=== PATIENT | female | born 1985 | race Two or more races ===

== ENCOUNTER 2020-12-20 17:50 | Emergency (ER) | payer MEDICAID ==
[~2020-12-20] VITALS: Ht 175.3 cm; Wt 63.5 kg
--- NOTE | 2020-12-20 17:50 | NUR ---
PT BIB SELF C/O R SIDE OF THE BODY NUMBNESS, DIZZINESS AND LOWER BACK PAIN. PT IS AAOX4, NOT IN RESPIRATORY DISTRESS, HOOKED TO HEADING MATCHER AND ASSEMBLER, KEPT RESTED AND COMFORTABLE. WILL CONTINUE TO MONITOR.
--- NOTE | 2020-12-20 18:17 | NUR ---
SEEN AND EXAMINED BY KATHY HUTCHISON
--- NOTE | 2020-12-20 18:25 | NUR ---
IV LINE ESTABLISHED BLOOD DRAWN AND SENT TO LAB.
[2020-12-20 18:33] LABS: BASOPHILS % (AUTO) 0.6 % (0.0-2.0); EOSINOPHILS % (AUTO) 1.1 % (0.0-6.0); HEMATOCRIT 35 % (33-45); HEMOGLOBIN 12.2 g/dL (11.5-14.8); LYMPHOCYTES # (AUTO) 1.9 /CMM (0.8-4.8); LYMPHOCYTES % (AUTO) 24.7 % (20.0-44.0); MEAN CORPUSCULAR HGB CONC 35 g/dl (31.0-36.0); MEAN CORPUSCULAR VOLUME 85 fL (82-100); MONOCYTES # (AUTO) 0.4 /CMM (0.1-1.30); MONOCYTES % (AUTO) 4.6 % (2.0-12.0); NEUTROPHILS # (AUTO) 5.3 /CMM (1.8-8.9); PLATELET COUNT (AUTO) 206 /CMM (150-450); RED BLOOD CELL COUNT(AUTO) 4.15 MIL/uL (4.0-5.2); WHITE BLOOD COUNT (AUTO) 7.7 K/uL (4.3-11.0)
[2020-12-20 18:44] LABS: CALCIUM, SERUM 9.3 mg/dL (8.5-10.1); CREATININE 0.8 mg/dL (0.6-1.3); POTASSIUM 3.9 mmol/L (3.5-5.1)
[2020-12-20 18:50] LABS: BILIRUBIN,DIRECT 0.1 mg/dL (0.0-0.2); BILIRUBIN,TOTAL 0.4 mg/dL (0.2-1.0); TOTAL PROTEIN, SERUM 7.4 g/dL (6.4-8.2)
[2020-12-20] MEDS: IV NS 0.9% 1,000 ML BAG IV ONE (19:03)
[2020-12-20 19:08] LABS: BILIRUBIN,URINE Negative (NEGATIVE); COLOR,URINE YELLOW (YELLOW); LEUKOCYTE ESTERASE ,URINE Moderate (NEGATIVE); NITRITE, URINE Negative (NEGATIVE); PH,URINE 6.5 (5.0-8.0); PROTEIN,URINE Negative (NEGATIVE); UGLUCOSE Negative (NEGATIVE); UROBILINOGEN,URINE 0.2 EU/dL (0.2)
[2020-12-20] MEDS ORDERED: DEXAMETHASONE SOD PHOSPHATE 10 MG/ML VIAL ONE (19:13)
[2020-12-20] MEDS ORDERED: KETOROLAC TROMETHAMINE INJ 30 MG/ML VIAL ONE (19:13)
[2020-12-20] MEDS ORDERED: CYCLOBENZAPRINE 10 MG TABLET ONE (19:14)
[2020-12-20 19:19] LABS: BACTERIA,URINE Few /HPF (None Seen); SQUAMOUS EPITHELIAL CELL,UR Few /HPF (None Seen)
[2020-12-20] MEDS: DEXAMETHASONE SOD PHOSPHATE 8 MG in IV D5W 50 ML IV ONE (19:27)
[2020-12-20] MEDS: CYCLOBENZAPRINE 10 MG TABLET PO ONE (19:30)
[2020-12-20] MEDS: KETOROLAC TROMETHAMINE INJ 30 MG/ML VIAL IV ONE (19:30)
--- NOTE | 2020-12-20 19:31 | NUR ---
REPORT GIVEN TO COREY CHATMAN FOR ESE
[2020-12-20] MEDS ORDERED: CEPH500T PO (19:59)
[2020-12-20] MEDS ORDERED: IBUP-1955 PO (19:59)
--- NOTE | 2020-12-20 20:04 | NUR ---
TARAH CHAVEZ AT BED SIDE
--- NOTE | 2020-12-20 20:16 | NUR ---
pt is medically stable for d/c, IV removed. Catheter intact and site benign. Pressure and 4x4 applied to site. No bleeding noted.Patient discharged to home in stable condition. Rx and Written and verbal after care instructions given. Patient verbalizes understanding of instruction.
[2020-12-20 20:17] VITALS: BP 137/89
== END 2020-12-20 20:27 | disposition home or self-care (01) ==
LOC: ER 17:57
DX: M54.5 Low back pain (principal); R51.9 Headache, unspecified; N39.0 Urinary tract infection, site not specified
CPT/HCPCS: 36415; 72110; 80048; 80076; 81001; 84703; 85025; 87086; 96361; 96374; 96375; 99284; J1100; J1885; J7030; J7060

== ENCOUNTER 2021-09-09 18:35 | Emergency (ER) | payer MEDICAID ==
[~2021-09-09] VITALS: Ht 170.2 cm; Wt 70.3 kg
[~2021-09-09 18:35] MED LIST: CEPH500T PO; IBUP-1955 PO
--- NOTE | 2021-09-09 18:58 | NUR ---
The patient bibs for c/o left thigh redness, warm to touch and pain since thursday 9/ pain scale. Will continue to monitor the patient.
[2021-09-09 19:36] LABS: BASOPHILS % (AUTO) 0.5 % (0.0-2.0); EOSINOPHILS % (AUTO) 3.1 % (0.0-6.0); HEMATOCRIT 35 % (33-45); LYMPHOCYTES # (AUTO) 1.9 K/uL (0.8-4.8); LYMPHOCYTES % (AUTO) 26.2 % (20.0-44.0); MEAN CORPUSCULAR HGB CONC 34 g/dl (31.0-36.0); MEAN CORPUSCULAR VOLUME 85 fL (82-100); MONOCYTES # (AUTO) 0.4 K/uL (0.1-1.30); MONOCYTES % (AUTO) 5.3 % (2.0-12.0); NEUTROPHILS # (AUTO) 4.8 K/uL (1.8-8.9); NEUTROPHILS % (AUTO) 64.9 % (43.0-81.0); PLATELET COUNT (AUTO) 211 K/uL (150-450); RED BLOOD CELL COUNT(AUTO) 4.13 MIL/uL (4.0-5.2); WHITE BLOOD COUNT (AUTO) 7.4 K/uL (4.3-11.0)
[2021-09-09 19:56] LABS: CALCIUM, SERUM 9.2 mg/dL (8.5-10.1); CREATININE 0.8 mg/dL (0.6-1.3); POTASSIUM 3.7 mmol/L (3.5-5.1)
[2021-09-09] MEDS ORDERED: CEPH500T PO (20:08)
[2021-09-09] MEDS ORDERED: SULF1TAB48 PO (20:08)
[2021-09-09] MEDS ORDERED: ACET-2605 PO (20:09)
[2021-09-09] MEDS: CEFTRIAXONE 1GM BAG (ER ONLY) 1 GM/50 ML PIGGYBACK IV ONE (20:20)
[2021-09-09] MEDS ORDERED: CEFTRIAXONE 1GM BAG (ER ONLY) 50 ML IV ONE (20:25)
[2021-09-09] MEDS ORDERED: SULFAMETH/TRIMETH 800/160 MG 1 UDTAB TABLET ONE (20:25)
[2021-09-09] MEDS ORDERED: IBUPROFEN 600 MG TABLET ONE (20:25)
[2021-09-09] MEDS: IBUPROFEN 600 MG TABLET PO ONE (20:37)
[2021-09-09] MEDS: SULFAMETH/TRIMETH 800/160 MG 1 UDTAB TABLET PO ONE (20:37)
--- NOTE | 2021-09-09 20:51 | NUR ---
IV removed. Catheter intact and site benign. Pressure and 4x4 applied to site. No bleeding noted.
--- NOTE | 2021-09-09 20:54 | NUR ---
Patient discharged to home in stable condition. Written and verbal after care instructions given. Patient verbalizes understanding of instruction and RX.
[2021-09-09 20:55] VITALS: BP 123/71
== END 2021-09-09 20:55 | disposition home or self-care (01) ==
LOC: ER 18:37
DX: L03.116 Cellulitis of left lower limb (principal); Z88.6 Allergy status to analgesic agent
CPT/HCPCS: 36415; 80048; 84702; 85025; 96365; 99284; J0696

== ENCOUNTER 2022-08-05 00:34 | Inpatient (IN) | payer MEDICAID ==
[~2022-08-05] VITALS: Ht 167.6 cm; Wt 64.0 kg
[~2022-08-05 00:34] MED LIST changes: +ACET-2605 PO; +SULF1TAB48 PO
[2022-08-05] MEDS ORDERED: IV NS 0.9% 250 ML IV ONE (00:55)
[2022-08-05] MEDS ORDERED: CT SWABBABLE VALVE TRANS SET 1 EA INFUS.SET MC ONE (00:55)
[2022-08-05] MEDS ORDERED: IOHEXOL-350 100 ML VIAL IV ONE (00:55)
--- NOTE | 2022-08-05 00:55 | NUR ---
BIBRA 839 FROM C/O FEELING DIZZY X1 HR WITH L SIDE NUMBNESS POSTERIOR HEAD PRESSURE. NO RECENT PROCEDURES OR INJURIES. ENDORSES A SIMILIAR EPISODE X2 YEARS PRIOR WITH NO DEFINITIVE DIAGNOSIS. PT AWAKE AND ALERT X4 GCS 15 BREATHING EVEN AND UNABORED 5/5 STRENGTH EQUALLY X4. -FACIAL DROOP OR SLURRED SPEECH. AM,BULATES WITH STEADY GAIT. CHANGED INTO GOWN AND PLACED ON MONITOR AND V/S WNL.
--- NOTE | 2022-08-05 00:56 | NUR ---
18G IV ESTABLISHED AT [facility]. BLOOD DRAWN AND SENT TO LAB.
--- NOTE | 2022-08-05 00:58 | NUR ---
PT TAKEN TO CT VIA OSMANI
--- NOTE | 2022-08-05 01:09 | NUR ---
XRAY DONE AT BEDSIDE
--- NOTE | 2022-08-05 01:11 | NUR ---
PT RETURNED FROM CT
[2022-08-05 01:12] LABS: BASOPHILS % (AUTO) 0.4 % (0.0-2.0); EOSINOPHILS % (AUTO) 1.3 % (0.0-6.0); HEMATOCRIT 39 % (33-45); HEMOGLOBIN 13.3 g/dL (11.5-14.8); LYMPHOCYTES # (AUTO) 2.7 K/uL (0.8-4.8); LYMPHOCYTES % (AUTO) 31.8 % (20.0-44.0); MEAN CORPUSCULAR HGB CONC 34 g/dl (31.0-36.0); MEAN CORPUSCULAR VOLUME 85 fL (82-100); MONOCYTES # (AUTO) 0.4 K/uL (0.1-1.30); MONOCYTES % (AUTO) 5.3 % (2.0-12.0); NEUTROPHILS # (AUTO) 5.1 K/uL (1.8-8.9); NEUTROPHILS % (AUTO) 61.2 % (43.0-81.0); PLATELET COUNT (AUTO) 261 K/uL (150-450); RED BLOOD CELL COUNT(AUTO) 4.59 MIL/uL (4.0-5.2); WHITE BLOOD COUNT (AUTO) 8.3 K/uL (4.3-11.0)
--- NOTE | 2022-08-05 01:15 | NUR ---
PT SPEAKING TO TELE NEUROLOGIST DR ARAUZ
--- NOTE | 2022-08-05 01:17 | NUR ---
DR. TIFFANIE ALLEN ON PHONE CALL WITH DR. RADHA ARAUZ MD NEUROLOGY
--- NOTE | 2022-08-05 01:20 | NUR ---
POC ACCUCHECK 99
--- NOTE | 2022-08-05 01:22 | NUR ---
Karlee santoyo in [facility] - 08/05/22 at 0122 by NOAH PT SPEAKING TO TELE NEUROLOGIST DR ARAUZ
--- NOTE | 2022-08-05 02:15 | NUR ---
RN NOTES - MRI COMPLETED THE CHECK LIST FOR MRI. PATIENT WAS BROUGHT VIA WHEELCHAIR AT 1315 AND WAS SENT BACK TO HER ROOM AT 1402, PATIENT STABLE WITHOUT ANY COMPLICATIONS. WILL CONTINUE TO MONITOR.
--- NOTE | 2022-08-05 02:34 | NUR ---
MIKE COLLECTED AND SENT TO LAB
[2022-08-05 02:40] LABS: CALCIUM, SERUM 9.2 mg/dL (8.5-10.1); CARBON DIOXIDE 26 mmol/L (21-32); CHLORIDE 103 mmol/L (98-107); CREATININE 0.8 mg/dL (0.6-1.3); GLUCOSE 114 mg/dL (74-106); POTASSIUM 3.4 mmol/L (3.5-5.1); SODIUM SERUM 135 mmol/L (136-145); UREA NITROGEN, BLOOD 17 mg/dL (7-18)
[2022-08-05] MEDS ORDERED: ACETAMINOPHEN ES 500 MG TABLET PO PRN (04:00)
--- NOTE | 2022-08-05 04:29 | NUR ---
REPORT GIVEN TO LIANNA
[2022-08-05 06:00] VITALS: BP 122/91
--- NOTE | 2022-08-05 06:07 | NUR ---
PT TRANSFERED TO [facility] ON CARDIAC PER ACLS IN STABLE CONDITION
--- NOTE | 2022-08-05 06:07 | NUR ---
[employer]ING SUPERVISOR NOTE PT TRANSPORTED VIA GURNEY TO UNIT AT THIS TIME. PT FROM HOME ADMITTED TO TELE FROM ER UNDER COMMUNICATIONS ADVISOR [facility] FOR ADMITTING DX OF R/O STROKE. A/O X4 AND ABLE TO MAKE NEEDS KNOWN. PT STABLE ON ROOM AIR. NO SOB OR S/S OF RESPIRATORY DISTRESS. BREATHING EVEN AND UNLABORED. ON EXTERNAL OPAL MINER READING SR 68 BPM. NO COMPLAINTS OF PAIN AT THIS TIME. STATED SHE WAS HAVING TINGLING OF BILATERAL FINGERTIPS AND DIZZINESS. SKIN IS INTACT. IV ACCESS RAC 18G, INTACT AND PATENT. ORIENTED TO UNIT, ROOM, AND STAFF. ALL BELONGINGS ACCOUNTED FOR AND BELONGINGS LIST SIGNED. SAFETY PRECAUTIONS IN PLACE. BED IN LOWEST LOCKED POSITION, HOB ELEVATED, SIDE RAILS UP X3, AND CALL LIGHT AND TABLE WITHIN REACH.
[2022-08-05] MEDS: BLOOD SUGAR DIAGNOSTIC 1 EACH STRIP IN SCH ×4 (06:43→21:10)
--- NOTE | 2022-08-05 07:35 | NUR ---
AUDIT PRACTICE INTERN OPENING NOTE RECEIVED PATIENT IN BED, SLEEPING, EASILY AROUSABLE, AOX4, ABLE TO MAKE NEEDS KNOWN. PT ON RA SATURATING WELL AT 98% WITH NO S/SX OF RESPIRATORY DISTRESS. BREATHING EVEN AND UNLABORED. ON EXTERNAL SENIOR SALES ASSOCIATE READING SR 71 BPM. NO COMPLAINTS OF PAIN AT THIS TIME. COMPLAINS OF DIZZINESS, STATING SHE WAS HAVING DIZZINESS, WEAKNESS ON BILATERAL HANDS. HAS IV ACCESS RAC 18G, INTACT AND PATENT. SAFETY PRECAUTIONS IN PLACE. BED IN LOWEST LOCKED POSITION, HOB ELEVATED, SIDE RAILS UP X3, AND CALL LIGHT AND TABLE WITHIN REACH. WILL CONTINUE TO MONITOR DURING MY SHIFT.
[2022-08-05 08:00] VITALS: BP 118/75
[2022-08-05] MEDS ORDERED: MECLIZINE HCL 12.5 MG TABLET PO PRN (08:00)
--- NOTE | 2022-08-05 08:15 | NUR ---
RN NOTES - MD VISITS DR MYERS AT BEDSIDE AT 0750, RECOMMENDS PT TO USE THE BEDPAN FOR NOW, ORDERED MRI OF THE BRAIN AND TEST, WILL CARRY OUT. DR SPAULDING WAS AT BEDSIDE AT 0810, ORDERED REGULAR DIET.
[2022-08-05] MEDS ORDERED: MECLIZINE HCL 25 MG TABLET PO PRN (08:30)
[2022-08-05] MEDS ORDERED: POTASSIUM CHLORIDE 20 MEQ TAB.PRT.SR PO SCH (10:00)
[2022-08-05 12:00] VITALS: BP 101/70
[2022-08-05 16:00] VITALS: BP 110/72
[2022-08-05 16:01] VITALS: BP 101/70
--- NOTE | 2022-08-05 19:03 | NUR ---
SITE LEAD CLOSING NOTE PATIENT IN BED, AOX4, ABLE TO MAKE NEEDS KNOWN. PT ON RA SATURATING WELL AT 97% WITH NO S/SX OF RESPIRATORY DISTRESS. BREATHING EVEN AND UNLABORED. TELEMONITORING SHOWS SINUS RHYTHM OF 71 BP. PATIENT REPORTS NO DIZZINESS AND WEAKNESS LIKE THIS MORNING. HAS IV ACCESS RAC 18G, INTACT AND PATENT. SAFETY PRECAUTIONS MAINTAINED: BED IN LOWEST LOCKED POSITION, HOB ELEVATED, SIDE RAILS UP X3, AND CALL LIGHT AND TABLE WITHIN REACH. ALL NEEDS MET, DUE MEDS GIVEN. WILL ENDORSE TO THE CREPE MAKER.
--- NOTE | 2022-08-05 19:34 | NUR ---
RN OPENING NOTE PATIENT RECEIVED ASLEEP IN BED. A/OX4. NO S/S OF DISTRESS, BREATHING WITHOUT DIFFICULTY ON ROOM AIR. RAC #18 SL INTACT AND PATENT. TELE READS SR 79. SAFETY MEASURES IN PLACE: BED LOCKED IN PLACE AND AT LOWEST POSITION, RAILS UP X2, CALL CACERES WITHIN REACH. WILL CONTINUE TO MONITOR PATIENT.
[2022-08-05 20:00] VITALS: BP 102/65
[2022-08-05] MEDS ORDERED: SIMVASTATIN 20 MG TABLET PO SCH (22:00)
[2022-08-06 04:00] VITALS: BP 107/70
[2022-08-06 06:02] LABS: CALCIUM, SERUM 9.5 mg/dL (8.5-10.1); CREATININE 0.8 mg/dL (0.6-1.3)
--- NOTE | 2022-08-06 06:15 | NUR ---
RN CLOSING NOTE PATIENT ASLEEP IN BED. A/OX4. NO S/S OF DISTRESS, BREATHING WITHOUT DIFFICULTY ON ROOM AIR. RAC #18 SL INTACT AND PATENT. TELE READS 79. SAFETY MEASURES IN PLACE: BED LOCKED AND AT LOWEST POSITION, RAILS UP X2, CALL CACERES WITHIN REACH. WILL ENDORSE TO NEXT SHIFT FOR ESE.
[2022-08-06] MEDS: BLOOD SUGAR DIAGNOSTIC 1 EACH STRIP IN SCH (06:35)
[2022-08-06 07:08] LABS: BASOPHILS % (AUTO) 0.3 % (0.0-2.0); EOSINOPHILS % (AUTO) 1.1 % (0.0-6.0); HEMATOCRIT 38 % (33-45); HEMOGLOBIN 12.9 g/dL (11.5-14.8); LYMPHOCYTES # (AUTO) 1.8 K/uL (0.8-4.8); LYMPHOCYTES % (AUTO) 22.3 % (20.0-44.0); MEAN CORPUSCULAR HGB CONC 34 g/dl (31.0-36.0); MEAN CORPUSCULAR VOLUME 85 fL (82-100); MONOCYTES # (AUTO) 0.4 K/uL (0.1-1.30); MONOCYTES % (AUTO) 5.2 % (2.0-12.0); NEUTROPHILS # (AUTO) 5.8 K/uL (1.8-8.9); NEUTROPHILS % (AUTO) 71.1 % (43.0-81.0); PLATELET COUNT (AUTO) 219 K/uL (150-450); RED BLOOD CELL COUNT(AUTO) 4.41 MIL/uL (4.0-5.2); WHITE BLOOD COUNT (AUTO) 8.2 K/uL (4.3-11.0)
[2022-08-06 08:00] VITALS: BP 112/81
--- NOTE | 2022-08-06 13:33 | NUR ---
MATERIAL CARRIER NOTE PATIENT DISCHARGED FROM UNIT @ 1330 VIA WHEELCHAIR. ACCOMPANIED BY SISTER IN LAW IN PRIVATE CAR. PERSONAL BELONGINGS TAKEN BY PATIENT; INVENTORY LIST SIGNED. IV ACCESS DC'D WITH NO SIGN OF TRAUMA OR BLEEDING. ID BAND REMOVED. NO MAJOR C/O PAIN UPON DISCHARGE.
== END 2022-08-06 13:30 | disposition home or self-care (01) | DRG 111 ==
LOC: ER 00:35 → TELE 04:11
PROVIDERS: ADMIT Internal Medicine; ATTEND Internal Medicine
DX: H81.10 Benign paroxysmal vertigo, unspecified ear (principal); E87.1 Hypo-osmolality and hyponatremia; Z20.822 Contact with and (suspected) exposure to COVID-19; E87.6 Hypokalemia; G43.109 Migraine with aura, not intractable, without status migrainosus; R53.1 Weakness
CPT/HCPCS: 36415; 70450-TC; 70496-TC; 70498-TC; 70553-TC; 71045-TC; 80048-TC; 80061-TC; 82962-TC; 84484-TC; 84703-TC; 85025-TC; 85730-TC; 87081-TC; 92526; 92611-TC; 93880-TC; C9803; G0378; J7050; J8597; Q9967

== ENCOUNTER 2023-10-06 17:12 | Emergency (ER) | payer SELFPAY ==
[~2023-10-06] VITALS: Ht 167.6 cm; Wt 59.9 kg
[~2023-10-06 17:12] MED LIST changes: -CEPH500T PO; +NABU-141 PO; -SULF1TAB48 PO
[2023-10-06 19:17] LABS: BASOPHILS % (AUTO) 0.4 % (0.0-2.0); EOSINOPHILS # (AUTO) 0.1 K/uL (0.0-0.7); HEMATOCRIT 35 % (33-45); LYMPHOCYTES # (AUTO) 1.6 K/uL (0.8-4.8); LYMPHOCYTES % (AUTO) 22.5 % (20.0-44.0); MEAN CORPUSCULAR HEMOGLOBIN 29 PG (26.0-33.0); MEAN CORPUSCULAR HGB CONC 34 g/dl (31.0-36.0); MEAN CORPUSCULAR VOLUME 85 fL (82-100); MONOCYTES # (AUTO) 0.3 K/uL (0.1-1.30); MONOCYTES % (AUTO) 4.8 % (2.0-12.0); NEUTROPHILS % (AUTO) 71.3 % (43.0-81.0); PLATELET COUNT (AUTO) 227 K/uL (150-450); RED BLOOD CELL COUNT(AUTO) 4.16 MIL/uL (4.0-5.2)
[2023-10-06 19:19] LABS: APPEARANCE,URINE CLEAR (CLEAR); BILIRUBIN,URINE NEGATIVE (NEGATIVE); BLOOD, URINE 1+ Ery/uL (NEGATIVE); COLOR,URINE YELLOW (YELLOW); KETONES,URINE NEGATIVE (NEGATIVE); LEUKOCYTE ESTERASE ,URINE TRACE (NEGATIVE); NITRITE, URINE NEGATIVE (NEGATIVE); PH,URINE 5.5 (5.0-8.0); PROTEIN,URINE NEGATIVE (NEGATIVE); UGLUCOSE NEGATIVE (NEGATIVE); UROBILINOGEN,URINE 0.2 EU/dL (0.2)
[2023-10-06 19:21] LABS: PREGNANCY TEST URINE QUAL POSITIVE (NEGATIVE)
[2023-10-06 19:26] LABS: CALCIUM, SERUM 9.6 mg/dL (8.5-10.1); CREATININE 0.7 mg/dL (0.6-1.3); POTASSIUM 3.6 mmol/L (3.5-5.1)
[2023-10-06 19:42] LABS: INR 1.03 (0.91-1.10); PARTIAL THROMBOPLASTIN TIME 27.9 SEC (24.3-34.3); PROTHROMBIN TIME 10.9 SECS (9.2-11.1)
[2023-10-06 19:52] LABS: ALBUMIN 4.1 g/dL (3.4-5.0); BILIRUBIN,DIRECT 0.1 mg/dL (0.0-0.2); BILIRUBIN,TOTAL 0.4 mg/dL (0.2-1.0); TOTAL PROTEIN, SERUM 7.8 g/dL (6.4-8.2)
[2023-10-06] MEDS ORDERED: CEPH500C2 PO (20:59)
[2023-10-06 21:20] LABS: ADD URINE CULTURE NO; BACTERIA,URINE 1+ /HPF (None Seen); WBC,URINE 0-2 /HPF (0-3)
[2023-10-06 21:21] VITALS: BP 115/72; TEMP 98.4; O2SAT 100
== END 2023-10-06 21:21 | disposition home or self-care (01) ==
LOC: ER 17:17
DX: O23.41 Unspecified infection of urinary tract in pregnancy, first trimester (principal); O46.91 Antepartum hemorrhage, unspecified, first trimester; R10.2 Pelvic and perineal pain; Z98.890 Other specified postprocedural states; Z79.899 Other long term (current) drug therapy; Z88.1 Allergy status to other antibiotic agents; N39.0 Urinary tract infection, site not specified; Z3A.01 Less than 8 weeks gestation of pregnancy
CPT/HCPCS: 36415; 76856-TC; 80048-TC; 80076-TC; 81001; 84702-TC; 84703-TC; 85025-TC; 85730-TC

== ENCOUNTER 2023-12-02 10:33 | Emergency (ER) | payer MEDICAID ==
[~2023-12-02] VITALS: Ht 170.2 cm; Wt 65.8 kg
[~2023-12-02 10:33] MED LIST changes: +CEPH500C2 PO
[2023-12-02] MEDS ORDERED: METOCLOPRAMIDE HCL 10 MG/2 ML VIAL ONE (10:59)
[2023-12-02] MEDS: METOCLOPRAMIDE HCL 10 MG/2 ML VIAL IV ONE (11:00)
[2023-12-02] MEDS: IV NS 0.9% 1,000 ML BAG IV ONE (11:00)
[2023-12-02 11:13] LABS: BASOPHILS % (AUTO) 0.2 % (0.0-2.0); EOSINOPHILS # (AUTO) 0.1 K/uL (0.0-0.7); EOSINOPHILS % (AUTO) 1.1 % (0.0-6.0); HEMATOCRIT 33 % (33-45); HEMOGLOBIN 11.3 g/dL (11.5-14.8); LYMPHOCYTES # (AUTO) 1.4 K/uL (0.8-4.8); LYMPHOCYTES % (AUTO) 14.8 % (20.0-44.0); MEAN CORPUSCULAR HEMOGLOBIN 29 PG (26.0-33.0); MEAN CORPUSCULAR HGB CONC 35 g/dl (31.0-36.0); MEAN CORPUSCULAR VOLUME 83 fL (82-100); MONOCYTES # (AUTO) 0.4 K/uL (0.1-1.30); MONOCYTES % (AUTO) 3.8 % (2.0-12.0); NEUTROPHILS # (AUTO) 7.6 K/uL (1.8-8.9); NEUTROPHILS % (AUTO) 80.1 % (43.0-81.0); PLATELET COUNT (AUTO) 221 K/uL (150-450); RED BLOOD CELL COUNT(AUTO) 3.96 MIL/uL (4.0-5.2); RED CELL DISTRIBUTION WIDTH 12.7 % (11.5-15.0); WHITE BLOOD COUNT (AUTO) 9.5 K/uL (4.3-11.0)
[2023-12-02 11:13] LABS: APPEARANCE,URINE CLEAR (CLEAR); BILIRUBIN,URINE NEGATIVE (NEGATIVE); BLOOD, URINE NEGATIVE Ery/uL (NEGATIVE); COLOR,URINE YELLOW (YELLOW); KETONES,URINE TRACE mg/dL (NEGATIVE); LEUKOCYTE ESTERASE ,URINE 3+ (NEGATIVE); NITRITE, URINE NEGATIVE (NEGATIVE); PH,URINE 7.5 (5.0-8.0); PROTEIN,URINE TRACE mg/dl (NEGATIVE); UGLUCOSE NEGATIVE (NEGATIVE); UROBILINOGEN,URINE 0.2 EU/dL (0.2)
[2023-12-02 11:25] LABS: CALCIUM, SERUM 9.5 mg/dL (8.5-10.1); CREATININE 0.5 mg/dL (0.6-1.3); POTASSIUM 3.6 mmol/L (3.5-5.1)
[2023-12-02 11:43] LABS: ADD URINE CULTURE YES; BACTERIA,URINE 1+ /HPF (None Seen); SQUAMOUS EPITHELIAL CELL,UR Moderate /HPF (None Seen); WBC,URINE 21-50 /HPF (0-3)
[2023-12-02 11:53] LABS: ALBUMIN 3.2 g/dL (3.4-5.0); BILIRUBIN,DIRECT 0.1 mg/dL (0.0-0.2); BILIRUBIN,TOTAL 0.2 mg/dL (0.2-1.0); TOTAL PROTEIN, SERUM 6.8 g/dL (6.4-8.2)
[2023-12-02] MEDS ORDERED: ACETAMINOPHEN 325 MG TABLET ONE (11:58)
[2023-12-02] MEDS ORDERED: CEFTRIAXONE 1GM BAG (ER ONLY) 50 ML IV ONE (11:58)
[2023-12-02] MEDS: ACETAMINOPHEN 325 MG TABLET PO ONE (12:00)
[2023-12-02] MEDS: CEFTRIAXONE 1 G in IV D5W 50 ML IV ONE (12:05)
[2023-12-02] MEDS ORDERED: ACET-2605 PO (13:06)
[2023-12-02] MEDS ORDERED: METO-295 PO (13:06)
[2023-12-02] MEDS ORDERED: CEFD300C3 PO (13:06)
[2023-12-02 14:45] VITALS: BP 118/66; TEMP 97.9; O2SAT 96
== END 2023-12-02 14:45 | disposition home or self-care (01) ==
LOC: ER 10:36
DX: O23.42 Unspecified infection of urinary tract in pregnancy, second trimester (principal); N39.0 Urinary tract infection, site not specified; O26.892 Other specified pregnancy related conditions, second trimester; R10.30 Lower abdominal pain, unspecified; O21.8 Other vomiting complicating pregnancy; R10.2 Pelvic and perineal pain; Z3A.14 14 weeks gestation of pregnancy; Z98.890 Other specified postprocedural states; Z79.899 Other long term (current) drug therapy; Z88.5 Allergy status to narcotic agent
CPT/HCPCS: 99285; 96365; 76805; 96361; 96375; 85025; 80048; 87086; 80076; 81001; 36415; 84702; J2765; J7030; J0696; J7060